=== PATIENT | male | born 1995 | race Two or more races ===

== ENCOUNTER 2017-03-02 14:00 | Emergency (ER) | payer OTHER ==
[~2017-03-02] VITALS: Ht 180.3 cm; Wt 90.7 kg
[2017-03-02 14:00] VITALS: BP 133/102
== END 2017-03-02 14:23 | disposition home or self-care (01) ==
LOC: ER 14:04
DX: K62.89 Other specified diseases of anus and rectum (principal); F17.200 Nicotine dependence, unspecified, uncomplicated
CPT/HCPCS: A4606; Z7610

== ENCOUNTER 2021-08-23 20:08 | Emergency (ER) | payer OTHER ==
[~2021-08-23] VITALS: Ht 180.3 cm; Wt 99.8 kg
--- NOTE | 2021-08-23 21:35 | NUR ---
CALL TO TRIAGE, NOT IN WAITING ROOM
--- NOTE | 2021-08-23 22:00 | NUR ---
CALLED TO TRIAGE NOT IN WAITING ROOM
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
[2021-08-23] MEDS ORDERED: HYDROCORTISONE ACETATE 25 MG/SUPP.RECT SUPP.RECT RC ONE ×2 (23:30→23:54)
[2021-08-23] MEDS ORDERED: KETOROLAC TROMETHAMINE INJ 60 MG/2 ML VIAL IM ONE (23:30)
[2021-08-23] MEDS ORDERED: KETOROLAC TROMETHAMINE INJ 30 MG/ML VIAL ONE (23:54)
--- NOTE | 2021-08-24 00:25 | NUR ---
pt unable to provide urine sample, "it still hurts". MD aware
[2021-08-24] MEDS ORDERED: POLY17PO4 PO ×2 (00:30)
[2021-08-24] MEDS ORDERED: HYDR25SU33 RC (00:30)
[2021-08-24 00:56] VITALS: BP 133/87
--- NOTE | 2021-08-24 00:56 | NUR ---
Patient discharged to home in stable condition. Written and verbal after care instructions given. Patient verbalizes understanding of instruction.
== END 2021-08-24 00:58 | disposition home or self-care (01) ==
LOC: ER 20:19
DX: K64.4 Residual hemorrhoidal skin tags (principal); K59.00 Constipation, unspecified; F17.200 Nicotine dependence, unspecified, uncomplicated; Z98.890 Other specified postprocedural states; Z79.899 Other long term (current) drug therapy
CPT/HCPCS: 96372; 99283; J1885